=== PATIENT | female | born 1975 | race Caucasian/White ===

== ENCOUNTER 2018-04-28 16:52 | Emergency (ER) | payer OTHER ==
[~2018-04-28] VITALS: Ht 147.3 cm; Wt 88.0 kg
[~2018-04-28 16:52] MED LIST: CIPRO250 M1 PO; CIPRO500 MG PO; CIPROFLOXACIN500 M1 PO; DOXYCYCLINE 10100 MG PO; FISH OIL 1,0001 EAC5; FLAGYL500 MG PO; FLOMAX PO; FLOMAX0.4 MG PO; HYDROCODONE-AP1 EAC6 PO; HYDROCODONE-APA1 TA1 PO; LACTASE 3000U T1 TA1; LORTAB 5 MG/5001 TA1 PO; MULTIVITAMINS1 EAC7; NORCO 5-325 TA1 EACH PO; PERCOCET 5-3251 EACH PO; PERCOCET 7.5-31 EACH PO; PERCOCET PO; PHENERGAN 25 MG25 M1 PO; PROMETHAZINE12.5 M1 PO; TAMSULOSIN HCL0.4 MG PO; TOPAMAX50 MG PO; VITAMIN C120 GM; VITAMIN D 5050000 I1 PO; VITAMINC500 PO; ZOFRAN ODT4 MG SUBLING; ZOFRAN4 MG PO
[2018-04-28 17:08] LABS: URINE BILIRUBIN NEGATIVE (Negative); URINE BLOOD NEGATIVE (Negative); URINE CLARITY CLEAR; URINE COLOR YELLOW; URINE GLUCOSE-RANDOM NEGATIVE (Negative); URINE KETONES NEGATIVE (Negative); URINE LEUKOCYTES-REFLEX NEGATIVE (Negative); URINE NITRITE-REFLEX NEGATIVE (Negative); URINE PROTEIN NEGATIVE (Negative); URINE SPECIFIC GRAVITY 1.025 (1.005-1.030); URINE UROBILINOGEN 0.2 E.U./dl (0.2-1.0)
[2018-04-28] MEDS ORDERED: TOPAMAX50 MG PO (17:13)
[2018-04-28 17:14] LABS: ABSOLUTE BASOPHILS 0.1 thou/uL (0.0-0.2); ABSOLUTE EOSINOPHILS 0.5 thou/uL (0.0-0.7); ABSOLUTE LYMPHOCYTES 2.8 thou/uL (0.8-5.3); ABSOLUTE MONOCYTES 0.5 thou/uL (0.0-1.2); ABSOLUTE NEUTROPHILS 6.1 thou/uL (1.6-8.1); BASOPHILS 0.9 %; EOSINOPHILS 4.6 %; HEMOGLOBIN 14.7 gm/dL (12.0-15.0); LYMPHOCYTES 28.2 %; MCH 29.9 pg (26.0-34.0); MCHC 34.1 g/dL (28.0-37.0); MCV 87.6 fL (80.0-100.0); MONOCYTES 5.4 %; MPV 7.6 fl. (7.2-11.1); NUCLEATED RBCS 0 /100WBC; PLATELET COUNT* 287 thou/uL (150-400); POLYS 60.9 %; RDW-CV 13.1 % (10.5-14.5)
[2018-04-28] MEDS ORDERED: SINGULAIR 10 MG10 M1 PO (17:14)
[2018-04-28 17:27] LABS: POTASSIUM 3.4 mmol/L (3.5-5.1)
[2018-04-28 17:31] LABS: ALBUMIN 3.5 g/dL (3.4-5.0); TOTAL BILIRUBIN 0.2 mg/dL (<0.1-1.0); TOTAL PROTEIN 7.2 g/dL (6.4-8.2)
[2018-04-28] MEDS ORDERED: HYDROCODONE-AP1 EAC6 PO (18:36)
[2018-04-28] MEDS ORDERED: PHENERGAN 25 MG25 M1 PO (18:36)
[2018-04-28] MEDS ORDERED: FLOMAX0.4 MG PO (18:36)
[2018-04-28 18:49] VITALS: BP 128/72
== END 2018-04-28 18:50 | disposition home or self-care (01) ==
LOC: M.ERS 16:52
PROVIDERS: Physician Assistant
DX: N20.0 Calculus of kidney (principal); E89.0 Postprocedural hypothyroidism; Z90.710 Acquired absence of both cervix and uterus; Z88.5 Allergy status to narcotic agent

== ENCOUNTER 2018-07-16 11:02 | Emergency (ER) | payer OTHER ==
[~2018-07-16] VITALS: Ht 147.3 cm; Wt 90.7 kg
[~2018-07-16 11:02] MED LIST changes: +SINGULAIR 10 MG10 M1 PO
[2018-07-16] MEDS ORDERED: ZYRTEC10 M5 PO (11:19)
[2018-07-16] MEDS ORDERED: MULTIVITAMINS1 EAC7 PO (11:19)
[2018-07-16] MEDS ORDERED: FLAX SEED OIL1000 MG PO (11:19)
[2018-07-16 11:59] LABS: ABSOLUTE BASOPHILS 0.1 thou/uL (0.0-0.2); ABSOLUTE EOSINOPHILS 0.6 thou/uL (0.0-0.7); ABSOLUTE LYMPHOCYTES 2.1 thou/uL (0.8-5.3); ABSOLUTE MONOCYTES 0.3 thou/uL (0.0-1.2); ABSOLUTE NEUTROPHILS 3.6 thou/uL (1.6-8.1); BASOPHILS 1.5 %; EOSINOPHILS 8.3 %; HEMATOCRIT 42.9 % (37.0-47.0); HEMOGLOBIN 14.5 gm/dL (12.0-15.0); LYMPHOCYTES 31.8 %; MCH 30.1 pg (26.0-34.0); MCHC 33.8 g/dL (28.0-37.0); MONOCYTES 4.8 %; NUCLEATED RBCS 0 /100WBC; PLATELET COUNT* 293 thou/uL (150-400); POLYS 53.6 %; RBC 4.81 mil/uL (4.20-5.00); RDW-CV 12.8 % (10.5-14.5); WBC 6.7 thou/uL (4.0-11.0)
[2018-07-16 12:01] LABS: URINE BILIRUBIN NEGATIVE (Negative); URINE BLOOD NEGATIVE (Negative); URINE CLARITY CLEAR; URINE COLOR YELLOW; URINE GLUCOSE-RANDOM NEGATIVE (Negative); URINE KETONES NEGATIVE (Negative); URINE LEUKOCYTES-REFLEX NEGATIVE (Negative); URINE NITRITE-REFLEX NEGATIVE (Negative); URINE PROTEIN NEGATIVE (Negative); URINE SPECIFIC GRAVITY 1.015 (1.005-1.030); URINE UROBILINOGEN 0.2 E.U./dl (0.2-1.0)
[2018-07-16 12:06] LABS: CALCIUM 9.2 mg/dL (8.5-10.1); POTASSIUM 3.8 mmol/L (3.5-5.1)
[2018-07-16 12:10] LABS: ALBUMIN 3.3 g/dL (3.4-5.0); TOTAL BILIRUBIN 0.2 mg/dL (<0.1-1.0); TOTAL PROTEIN 6.9 g/dL (6.4-8.2)
[2018-07-16] MEDS ORDERED: NORCO 5-325 TA1 EACH PO (13:54)
[2018-07-16] MEDS ORDERED: ZOFRAN ODT4 MG PO (13:55)
[2018-07-16 14:10] VITALS: BP 113/52
== END 2018-07-16 14:11 | disposition home or self-care (01) ==
LOC: M.ERS 11:02
PROVIDERS: Physician Assistant Surgical
DX: N20.0 Calculus of kidney (principal)

== ENCOUNTER 2018-12-24 22:48 | Emergency (ER) | payer OTHER ==
[~2018-12-24] VITALS: Ht 147.3 cm; Wt 92.5 kg
[~2018-12-24 22:48] MED LIST changes: +FLAX SEED OIL1000 MG PO; +MULTIVITAMINS1 EAC7 PO; +ZOFRAN ODT4 MG PO; +ZYRTEC10 M5 PO
[2018-12-25] MEDS ORDERED: NORCO 7.5-3251 EACH PO (00:01)
[2018-12-25 00:30] VITALS: BP 134/68
== END 2018-12-25 00:31 | disposition home or self-care (01) ==
LOC: M.ERS 22:48
DX: S93.491A Sprain of other ligament of right ankle, initial encounter (principal); E89.0 Postprocedural hypothyroidism; Z90.710 Acquired absence of both cervix and uterus; Z98.890 Other specified postprocedural states; Z88.5 Allergy status to narcotic agent; Z88.8 Allergy status to other drugs, medicaments and biological substances; W19.XXXA Unspecified fall, initial encounter; Y93.89 Activity, other specified; Y92.89 Other specified places as the place of occurrence of the external cause; Y99.8 Other external cause status

== ENCOUNTER → 2019-01-06 | Day surgery (SDC) | payer OTHER ==
[~2019-01-06] MED LIST changes: +NORCO 7.5-3251 EACH PO
--- NOTE | ~2019-01-06 | OP ---
[facility] [address] [place] [address] OPERATIVE REPORT Name: ROSSANALUIS FELIPE ANDUJAR Room: [facility]#: [id number] Admission: 01/06/19 Attend Phys: Kiki Keen DO Discharge: Date of : 73 Report #: [id number] THIS REPORT FOR: //name// CC: Kiki Avila DATE OF SERVICE: 01/06/2019 PREOPERATIVE DIAGNOSES: 1. Right ankle Maisonneuve injury. 2. Right nondisplaced proximal fibular fracture. POSTOPERATIVE DIAGNOSES: 1. Right ankle Maisonneuve injury. 2. Right nondisplaced proximal fibular fracture. SURGEON: Kiki Keen DO. SALES MANAGER [employer]: Ottoniel Price DO. PROCEDURE: 1. Right ankle arthroscopy with debridement of synovial tissue. 2. Right ankle ORIF of the syndesmosis. ANESTHESIA: General. ESTIMATED BLOOD LOSS: 10 mL. DRAINS: None. SPECIMENS: None. COMPLICATIONS: None. CONDITION: The patient is stable. DISPOSITION: PACU to home. ANTIBIOTICS: 2 grams Ancef IV preoperatively. TOURNIQUET: 48 minutes at 250 mmHg. IMPLANTS: Arthrex TightRope and InternalBrace. INDICATION FOR PROCEDURE: The patient is a 43-year-old female who sustained a twisting type injury to her right lower leg last week. She was seen initially [facility] [address] [place] [address] OPERATIVE REPORT Name: LUIS FELIPE TRACY Room: [facility]#: [id number] Admission: 01/06/19 Attend Phys: Kiki Keen DO Discharge: Date of : 73 Report #: [id number] at [facility]. She was complaining of right lateral lower leg pain. We did obtain x-rays in the outpatient setting including a knee x-ray. This did show a spiral fracture of the proximal fibula. We also performed a stress view of the ankle, which showed medial clear space widening and widening of the tib-fib overlap indicative of a Maisonneuve injury. I did recommend right ankle arthroscopy with ORIF of the syndesmosis. The benefits, risks, complications and alternatives of the procedure were discussed with the patient in detail. These include but are not limited to bleeding, surgical site infection, neurovascular compromise, posttraumatic arthritis, continued pain, need for further surgery, DVT, PE as well as the inherent risks of anesthesia. The patient understands these risks and agreed to proceed. Consent was signed in the preoperative holding area and on the chart at the time of surgery. Operative site was marked in the preoperative holding area as well. DESCRIPTION OF PROCEDURE: The patient was brought to the operating room, placed supine on the operating table. She was administered general anesthetic. A well-padded tourniquet was placed in the proximal portion of the right thigh. The right lower extremity was then placed into the thigh support. The right lower extremity was then sterilely prepped with chlorhexidine scrub and ChloraPrep x 2. This was allowed to dry for 3 minutes. She was then draped freely in the usual fashion. Time-out was performed to confirm correct patient, site and procedure. Surgical site markings were identified. All in the room were in agreement. We then placed the leg into the noninvasive ankle distractor. We marked out the distribution of the superficial peroneal nerve. The right lower extremity was exsanguinated with an Esmarch and tourniquet inflated to 250 mmHg. Next, a standard anteromedial portal was established with a 15 blade. Scope was introduced into the ankle and diagnostic arthroscopy was performed. An anterolateral portal was then established with a 15 blade. Arthroscopic shaver was then introduced into the ankle and debridement of the synovium was carried out. There was noted to be hemorrhagic tissue throughout the lateral aspect of the ankle joint. We then individually probed the three ligaments of the syndesmosis. The AITFL was noted to be hemorrhagic as well as there was noted to be a partial tear from the tibial side. We were able to probe completely through the interosseous membrane noting instability of the interosseous membrane and then posteriorly, we noticed some fissuring of the cartilage near the posterior malleolus as well as some hemorrhagic tissue surrounding the PITFL indicating a partial tear. We then finished the debridement portion. All arthroscopic instruments were removed from the ankle and the scope, the noninvasive ankle distractor and leg carlos were removed. We then turned our attention to the open portion of the procedure. We made an anterolateral incision along the anterior border of the fibula. This was carried through skin and subcutaneous tissues. Care was taken to protect the superficial peroneal nerve. Dissection was carried down to the level of the syndesmosis. The AITFL was identified, was noted to be partially torn again off the tibial side. We performed a stress view intraoperatively and there was noted to be disruption at the syndesmosis. Therefore, [place] [address] OPERATIVE REPORT Name: LUIS FELIPE TRACY Room: [facility]#: [id number] Admission: 01/06/19 Attend Phys: Kiki KeenDO Discharge: Date of : 73 Report #: [id number] fix this with a TightRope to reapproximate the interosseous membrane as well as an InternalBrace across the AITFL distribution. Approximately 2 cm proximal to the ankle joint, we drilled across all four cortices and the TightRope was placed across the tibia and fibula and tightened down appropriately. We then turned our attention to the InternalBrace. We drilled in appropriate positions in the fibula with the smaller drill bit and the 3.75 mm SwiveLock was placed into the fibula. There was noted to be an excellent bite. We then approximately 1 cm above the ankle joint on the anterior aspect of the tibia drilled for the 4.75 mm SwiveLock. This was then tapped and being cautious not to over tighten this. We marked the appropriate position on the InternalBrace and the tibial limb on the InternalBrace was then placed. Again, there was noted to be an excellent bite with the SwiveLock. Excess sutures were removed from both the TightRope and the InternalBrace at this time. We then performed stress views, which noted to close down the ankle joint and to have stabilized the ankle joint appropriately. We then irrigated the wound with saline and closed the deep tissues with 0 Vicryl suture, subcutaneous tissues were closed with 2-0 Vicryl suture and skin was reapproximated with 3-0 nylon. The tourniquet was let down at approximately 48 minutes. The patient tolerated the procedure well and was transferred to PACU in stable condition. Wounds were dressed with Xeroform, 4 x 4s, ABD, soft roll and a well-padded posterior splint was applied. All needle and sponge counts were correct x 2 and I was present throughout the entirety of the case. By: [id number] Keen DO /nt
== END | disposition home or self-care (01) ==
LOC: M.SUR 07:22
DX: S82.861A Displaced Maisonneuve's fracture of right leg, initial encounter for closed fracture (principal); S82.491A Other fracture of shaft of right fibula, initial encounter for closed fracture; S93.431A Sprain of tibiofibular ligament of right ankle, initial encounter; Z88.8 Allergy status to other drugs, medicaments and biological substances; Z79.899 Other long term (current) drug therapy; X58.XXXA Exposure to other specified factors, initial encounter; Y93.89 Activity, other specified; Y92.89 Other specified places as the place of occurrence of the external cause; Y99.8 Other external cause status

== ENCOUNTER → 2019-06-13 | Outpatient (CLI) | payer OTHER | LOC: M.MRI 16:02 | DX: S83.281A Other tear of lateral meniscus, current injury, right knee, initial encounter (principal); X58.XXXA Exposure to other specified factors, initial encounter; Y93.89 Activity, other specified; Y92.89 Other specified places as the place of occurrence of the external cause; Y99.8 Other external cause status ==

== ENCOUNTER 2019-09-30 19:59 | Emergency (ER) | payer OTHER ==
[~2019-09-30] VITALS: Ht 147.3 cm; Wt 73.9 kg
[2019-09-30] MEDS ORDERED: OMEPRAZOLE 20 M20 M1 PO (20:13)
[2019-09-30 20:26] LABS: URINE BILIRUBIN NEGATIVE (Negative); URINE BLOOD NEGATIVE (Negative); URINE CLARITY CLEAR; URINE COLOR YELLOW; URINE GLUCOSE-RANDOM NEGATIVE (Negative); URINE KETONES TRACE (Negative); URINE LEUKOCYTES-REFLEX NEGATIVE (Negative); URINE NITRITE-REFLEX NEGATIVE (Negative); URINE PROTEIN NEGATIVE (Negative); URINE SPECIFIC GRAVITY 1.025 (1.005-1.030); URINE UROBILINOGEN 0.2 E.U./dl (0.2-1.0)
[2019-09-30 20:31] LABS: ABSOLUTE BASOPHILS 0.1 thou/uL (0.0-0.2); ABSOLUTE EOSINOPHILS 0.3 thou/uL (0.0-0.7); ABSOLUTE MONOCYTES 0.4 thou/uL (0.0-1.2); ABSOLUTE NEUTROPHILS 3.2 thou/uL (1.6-8.1); BASOPHILS 1.2 %; EOSINOPHILS 4.5 %; HEMATOCRIT 42.8 % (37.0-47.0); HEMOGLOBIN 14.8 gm/dL (12.0-15.0); LYMPHOCYTES 42.7 %; MCH 30.8 pg (26.0-34.0); MCHC 34.7 g/dL (28.0-37.0); MCV 88.8 fL (80.0-100.0); MONOCYTES 5.8 %; MPV 7.9 fl. (7.2-11.1); NUCLEATED RBCS 0 /100WBC; PLATELET COUNT* 279 thou/uL (150-400); POLYS 45.8 %; RBC 4.82 mil/uL (4.20-5.00)
[2019-09-30 20:40] LABS: CALCIUM 10.1 mg/dL (8.5-10.1)
[2019-09-30 20:44] LABS: ALBUMIN 3.6 g/dL (3.4-5.0); TOTAL BILIRUBIN 0.3 mg/dL (<0.1-1.0); TOTAL PROTEIN 7.1 g/dL (6.4-8.2)
[2019-09-30] MEDS ORDERED: NORCO 5-325 TA1 EAC1 PO (21:49)
[2019-09-30] MEDS ORDERED: PHENERGAN 25 MG25 M1 PO (21:49)
[2019-09-30] MEDS ORDERED: TORADOL 10 MG T10 MG PO (21:49)
[2019-09-30] MEDS ORDERED: CIPROFLOXACIN500 M1 PO (21:49)
[2019-09-30] MEDS ORDERED: SINGULAIR 10 MG10 MG PO (22:16)
[2019-09-30 22:22] VITALS: BP 122/88
== END 2019-09-30 22:25 | disposition home or self-care (01) ==
LOC: M.ERS 19:59
PROVIDERS: Personal Emergency Response Attendant
DX: N23 Unspecified renal colic (principal); Z88.5 Allergy status to narcotic agent; Z88.8 Allergy status to other drugs, medicaments and biological substances; Z90.710 Acquired absence of both cervix and uterus; Z87.442 Personal history of urinary calculi; Z98.890 Other specified postprocedural states